=== PATIENT | female | born 1995 | race Caucasian/White ===

== ENCOUNTER 2016-07-15 14:40 | Inpatient (IN) | payer MEDICAID ==
[~2016-07-15] VITALS: Ht 162.6 cm; Wt 68.8 kg
[2016-07-15] MEDS ORDERED: AMPICILLIN 2 GM/NS (PMX) 100 ML IVPB ONE (15:00)
[2016-07-15 15:10] VITALS: Ht 162.6 cm; Wt 68.8 kg
[2016-07-15] MEDS ORDERED: PRENAT PO (15:12)
[2016-07-15] MEDS ORDERED: FERR325C PO (15:12)
[2016-07-15] MEDS: LACTATED RINGER'S 1,000 ML IV SCH ×3 (15:15→23:47)
[2016-07-15] MEDS ORDERED: BUTORPHANOL 2 MG INJ IV PRN (15:30)
[2016-07-15] MEDS ORDERED: LIDOCAINE 1% (MPF) 30 ML INJ INJ PRN (15:30)
[2016-07-15] MEDS ORDERED: IBUPROFEN 600 MG TAB PO PRN (15:30)
[2016-07-15] MEDS ORDERED: OXYTOCIN 30 UNITS/LR 500 ML IV SCH ×3 (15:30)
[2016-07-15] MEDS ORDERED: CARBOPROST 250 MCG INJ IM PRN (15:30)
[2016-07-15] MEDS ORDERED: LACTATED RINGER'S 1,000 ML IV PRN (15:30)
[2016-07-15] MEDS ORDERED: OXYTOCIN 30 UNITS/LR 500 ML IV PRN (15:30)
[2016-07-15] MEDS ORDERED: MISOPROSTOL 200 MCG TAB PR PRN (15:30)
[2016-07-15] MEDS ORDERED: METHYLERGONOVINE 0.2 MG INJ IM PRN (15:30)
[2016-07-15] MEDS ORDERED: AMPICILLIN 2 GM/NS (PMX) 100 ML ONE (15:41)
[2016-07-15 15:55] LABS: ADD SCAN DIFF NO
[2016-07-15 15:59] LABS: BASOPHILS % 0.2 % (0.0-2.0); EOSINOPHILS # 0.2 10^3/ul (0.0-0.5); EOSINOPHILS % 1.5 % (0.0-7.0); HEMATOCRIT 38.2 % (37.0-47.0); HEMOGLOBIN 12.9 g/dl (12.0-16.0); LYMPHOCYTES # 1.1 10^3/ul (0.8-2.9); LYMPHOCYTES % 10.9 % (18.0-55.0); MEAN CORPUSCULAR HEMOGLOBIN 30.7 pg (29.0-33.0); MEAN CORPUSCULAR HGB CONC 33.8 g/dl (32.0-37.0); MEAN PLATELET VOLUME 10.9 fl (7.4-10.4); MONOCYTE # 0.7 10^3/ul (0.3-0.9); MONOCYTES % 6.8 % (0.0-13.0); NEUTROPHIL # 7.9 10^3/ul (1.6-7.5); NEUTROPHILS % 79.5 % (30.0-74.0); PLATELET COUNT 254 10^3/UL (140-415); RED CELL DISTRIBUTION WIDTH 15.6 % (11.5-14.5); WHITE BLOOD COUNT 9.9 10^3/ul (4.8-10.8)
[2016-07-15 16:13] LABS: INR 0.93; PARTIAL THROMBOPLASTIN TIME 26.4 Sec (25.0-35.0); PROTIME 12.5 Sec (12.2-14.2)
--- NOTE | 2016-07-15 16:14 | TRIAGE ---
OB Triage Datetime Report Generated by CPN: 07/15/2016 16:14 Datetime: 07/15/2016 14:53 Vaginal Exam Dilatation (cms): 3.0 Effacement (%): 70 Station: -2 Exam By: OGBODU RN Datetime: 07/15/2016 14:46 Maternal Assessment Level of Consciousness: Fully Conscious DTR's/Clonus: DTRs 2+; No Clonus Headache: Denies Blurred Vision: No Respiratory Effort: Unlabored; Regular Rhythm; Equal Expansion Breath Sounds, Left: Clear and Equal Breath Sounds, Right: Clear and Equal Nausea/Vomiting: Denies RUQ Epigastric Pain: Denies Facial Edema: None Temperature Route: Axillary Fall Risk Assessment History of Falling: (0) No Secondary Diagnosis: (0) No Ambulatory Aid: (0) Bedrest/Nurse Assist IV Therapy: (0) No Gait: (0) Normal/Bedrest/Immobile Mental Status: (0) Oriented to Own Ability Fall Score: 0 Fall Risk Score Definition: No Risk: No action required Datetime: 07/15/2016 14:45 EGA: 39.3 Datetime: 07/15/2016 14:44 Time of Arrival: 07/15/2016 14:35 Arrived By: Ambulatory Arrived From: Home Chief Complaint: UC'S Movement: Present Contractions: Irregular Time Contractions Began: 07/15/2016 08:00 Contractions: IRREG Rupture of Membranes: Denies Vaginal Bleeding: None Vaginal Discharge: Denies Recent Sexual Intercouse: Denies Abdominal Trauma: Not Applicable Patient Complaints: Contractions; Back Pain Time Provider Notified: 07/15/2016 15:00 Provider Notified: DR. CARRASCO Initial Plan: SHREYAS REYEZ
[2016-07-15 19:07] VITALS: BP 116/82; PULSE 90; RESP 18
[2016-07-15] MEDS: AMPICILLIN 1 GM/NS (PMX) 50 ML IVPB SCH (20:27)
[2016-07-16] MEDS ORDERED: FENTAnyl 2MCG/ML-ROPIV 0.2% 100 ML ONE (00:17)
[2016-07-16] MEDS: AMPICILLIN 1 GM/NS (PMX) 50 ML IVPB SCH ×4 (00:23→12:10)
[2016-07-16] MEDS ORDERED: NALOXONE (0.4 MG/ML) INJ IV PRN (00:30)
[2016-07-16] MEDS ORDERED: FENTAnyl 2MCG/ML-ROPIV 0.2% 100 ML BAG EPI SCH (00:30)
[2016-07-16] MEDS: LACTATED RINGER'S 1,000 ML IV SCH (07:03)
--- NOTE | 2016-07-16 15:23 | LDN ---
Date/Time of Note Date/Time of Note DATE: 07/16/16 TIME: 15:18 Delivery Summary Normal spontaneous vaginal delivery of a baby girl from [place] position shoulders delivered without any difficulties rest of the baby's body follow placenta spontaneous expulsion inspected complete patient sustained small first-degree perineal laceration repaired with 3-0 chromic catgut estimated blood loss 200 mL Weeks of Gestation 39 weeks 3 days Placenta Delivered: Spontaneously Meconium: none Episiotomy: No Laceration repair: First-degree perineal laceration repaired with 3-0 chromic catgut Anesthesia type: Epidural Sponge & Needle done & correct: Yes All needle counts correct: Yes Any foreign bodies felt in the: No Problems: Infant Delivery Information Sex Sex: female Apgars 1 Minute: 8 5 Minute: 9 Suctioning Nose & mouth suctioned at sm[place]: Yes Umbilical Cord Umbilical cord with: 3 Vessels Cord presentations: nuchal cord Nuchal cord present X: 2 Cord Blood was obtained: Yes ALCIDES CARRASCO MD July 16, 2016 15:23
--- NOTE | 2016-07-16 15:31 | HP ---
Date/Time of Note Date/Time of Note DATE: 07/16/16 TIME: 15:28 OB - History Hx of Present Free Text/Dictation 20 years old female 1 para 0 EDC July 19, 2016 at 39 weeks and 3 days admitted in labor admitting exam consists of cervical dilatation of 3 cm 70% effacement vertex AT -2 station contraction 5-7 minutes of she required labor augmentation uneventful course except positive cultures for GBS Chief Complaint: Labor contraction Estimated Due Date: July 19, 2016 : 1 Para: 0 Care: Good Care Ultrasounds: Normal mid trimester US Medical Complications: None Past Family/Social History * Past Medical, Surgical, Family and Obstetric Histories reviewed from chart. Rubella: immune RPR/VDRL: Negative GBS Status: Negative HBsAG: Negative OB Admission Exam Vital Signs Vital Signs Vital Signs Date Time Temp Pulse Resp B/P Pulse Ox O2 Delivery O2 Flow Rate FiO2 07/15/16 19:07 98.2 90 18 116/82 97 Room Air Physical Exam HEENT: WNL Heart: Rhythm Normal Lungs: Clear, Equal Abdomen: WNL Extremities: Normal Reflexes: Normal Cervical Dilatation: 3cm Effacement: 75% Station: -2 Membranes: Intact Heart Rate: 120's Accelerations: Accelerations Present Decelerations: No Decelerations Varibility: Moderate Contractions on Admission: >10 Minutes Apart Intensity: Mild Last 72 hours Lab Results CBC & BMP 07/15/16 15:30 ALCIDES CARRASCO MD July 16, 2016 15:31
[2016-07-16 16:10] VITALS: BP 112/71; PULSE 97; RESP 18
[2016-07-16] MEDS ORDERED: LANOLIN 7 GM TUBE TOP PRN (18:00)
[2016-07-16] MEDS ORDERED: ONDANSETRON 4 MG INJ IV PRN (18:00)
[2016-07-16] MEDS ORDERED: OXYCODONE/ASPIRIN (4.88/325) TAB PO PRN (18:00)
[2016-07-16] MEDS ORDERED: DIBUCAINE 1% 30 GM OINT PR PRN (18:00)
[2016-07-16] MEDS ORDERED: ACETAMINOPHEN 325 MG TAB PO PRN (18:00)
[2016-07-16] MEDS ORDERED: ACETAMINOPHEN/CODEINE #3 TAB PO PRN ×2 (18:00)
[2016-07-16] MEDS: BENZOCAINE 20% 56 ML SPRAY TOP PRN (18:16)
[2016-07-16] MEDS: WITCH HAZEL/GLYCERIN PAD PR PRN (18:16)
[2016-07-16] MEDS: OXYTOCIN 30 UNITS/LR 500 ML IV SCH ×2 (18:18→22:11)
[2016-07-16] MEDS: IBUPROFEN 600 MG TAB PO SCH ×2 (18:19→23:58)
[2016-07-16 19:50] VITALS: BP 111/69; PULSE 84; RESP 18
[2016-07-16] MEDS: SENNA/DOCUSATE NA (8.6MG/50MG) TAB PO SCH (21:30)
[2016-07-17] VITALS: BP 103/64; PULSE 72; RESP 18
[2016-07-17 04:05] VITALS: BP 109/82; PULSE 84; RESP 18
[2016-07-17] MEDS: IBUPROFEN 600 MG TAB PO SCH ×4 (05:58→23:54)
[2016-07-17 07:59] LABS: ADD SCAN DIFF NO
[2016-07-17 08:00] LABS: BASOPHILS % 0.4 % (0.0-2.0); EOSINOPHILS # 0.3 10^3/ul (0.0-0.5); EOSINOPHILS % 3.1 % (0.0-7.0); HEMATOCRIT 36.3 % (37.0-47.0); HEMOGLOBIN 11.9 g/dl (12.0-16.0); LYMPHOCYTES # 1.3 10^3/ul (0.8-2.9); LYMPHOCYTES % 13.1 % (18.0-55.0); MEAN CORPUSCULAR HEMOGLOBIN 30.2 pg (29.0-33.0); MEAN CORPUSCULAR HGB CONC 32.8 g/dl (32.0-37.0); MEAN CORPUSCULAR VOLUME 92.1 fl (72.0-104.0); MONOCYTE # 0.8 10^3/ul (0.3-0.9); MONOCYTES % 8.5 % (0.0-13.0); NEUTROPHIL # 7.2 10^3/ul (1.6-7.5); NEUTROPHILS % 74.1 % (30.0-74.0); PLATELET COUNT 215 10^3/UL (140-415); RED BLOOD COUNT 3.94 10^6/ul (4.20-5.40); RED CELL DISTRIBUTION WIDTH 15.9 % (11.5-14.5); WHITE BLOOD COUNT 9.7 10^3/ul (4.8-10.8)
[2016-07-17 08:30] VITALS: BP 100/68; PULSE 80; RESP 18
[2016-07-17] MEDS: SENNA/DOCUSATE NA (8.6MG/50MG) TAB PO SCH ×2 (09:15→20:28)
[2016-07-17 12:01] LABS: RUBELLA ANTIBODY - IGG <0.90 index
--- NOTE | 2016-07-17 13:10 | PN ---
Date/Time of Note Date/Time of Note DATE: 07/17/16 TIME: 13:09 OB Subjective Subjective Subjective day 1 Afebrile abdomen soft uterus firm lochia normal extremity normal ambulation encouraged Laboratory Tests Test 07/17/16 07:10 White Blood Count 9.710^3/ul Red Blood Count 3.9410^6/ul Hemoglobin 11.9g/dl Hematocrit 36.3% Mean Corpuscular Volume 92.1fl Mean Corpuscular Hemoglobin 30.2pg Mean Corpuscular Hemoglobin Concent 32.8g/dl Red Cell Distribution Width 15.9% Platelet Count 15693^3/UL Mean Platelet Volume 11.0fl Neutrophils % 74.1% Lymphocytes % 13.1% Monocytes % 8.5% Eosinophils % 3.1% Basophils % 0.4% Nucleated Red Blood Cells % 0.0/100WBC Neutrophils # 7.210^3/ul Lymphocytes # 1.310^3/ul Monocytes # 0.810^3/ul Eosinophils # 0.310^3/ul Basophils # 0.010^3/ul Nucleated Red Blood Cells # 0.010^3/ul Current Medications Medications (Trade) Dose Ordered Sig/Britton Route PRN Reason Start Time Stop Time Status Last Admin Dose Admin Lactated Ringer's 1,000 ml @ 125 mls/hr Q8H IV 07/15/16 15:05 07/16/16 17:59 DC 07/16/16 07:03 Oxytocin/Lactated Ringer's 500 ml @ 0 mls/hr TITRATE IV 07/15/16 15:30 07/16/16 17:59 DC 07/15/16 16:00 Butorphanol Tartrate (Stadol) 2 mg Q2H PRN IV PAIN 07/15/16 15:30 07/16/16 17:59 DC Lidocaine 30 ml 30 ml ONCE PRN INJ EPISIOTOMY/TEARING 07/15/16 15:30 07/16/16 17:59 DC Oxytocin/Lactated Ringer's 500 ml @ 125 mls/hr ONCE -MAY REPEAT X1 IV 07/15/16 15:30 07/16/16 17:59 DC 07/16/16 13:05 Oxytocin/Lactated Ringer's 500 ml @ 125 mls/hr ONCE IV 07/15/16 15:30 07/16/16 17:59 DC Ibuprofen 600 mg 600 mg ONCE PRN PO Mild Pain (Pain Score 1-3) 07/15/16 15:30 07/16/16 18:00 DC 07/16/16 14:20 Lactated Ringer's 1,000 ml @ 2,000 mls/hr Q30M PRN IV PRE-EPIDURAL BOLUS 07/15/16 15:30 07/16/16 18:00 DC Oxytocin/Lactated Ringer's 500 ml @ 0 mls/hr ONCE PRN IV For Hemorrhage Management 07/15/16 15:30 07/16/16 18:00 DC Methylergonovine Maleate (Methergine) 0.2 mg ONCE PRN IM VAGINAL BLEEDING 07/15/16 15:30 07/16/16 18:00 DC Carboprost Tromethamine (Hemabate) 250 mcg ONCE PRN IM VAGINAL BLEEDING 07/15/16 15:30 07/16/16 18:00 DC Misoprostol 1000 mcg 1,000 mcg ONCE PRN MS VAGINAL BLEEDING 07/15/16 15:30 07/16/16 18:00 DC Ampicillin 100 ml @ STK-MED ONCE .ROUTE 07/15/16 15:41 07/15/16 15:42 DC Ampicillin 100 ml @ 100 mls/hr ONCE ONCE IVPB 07/15/16 15:00 07/15/16 16:41 DC 07/15/16 16:00 Ampicillin (Ampicillin 1 Gm/ NS (Pmx)) 50 ml @ 100 mls/hr Q4 IVPB 07/15/16 17:00 07/16/16 18:00 DC 07/16/16 12:10 Naloxone HCl (Narcan) 0.2 mg Q2M PRN IV FOR RESP RATE 8 OR LESS 07/16/16 00:30 07/16/16 18:00 DC Fentanyl/ Ropivacaine 100 ml 100 ml EPIDURAL (PCEA) EPI 07/16/16 00:30 07/16/16 18:00 DC 07/16/16 07:41 Fentanyl/ Ropivacaine 100 ml @ STK-MED ONCE .ROUTE 07/16/16 00:17 07/16/16 00:18 DC Oxytocin/Lactated Ringer's 500 ml @ 125 mls/hr Q4H IV 07/16/16 17:58 07/17/16 01:57 DC 07/16/16 22:11 Ibuprofen (Motrin) 600 mg Q6 PO 07/16/16 18:00 07/17/16 12:53 Acetaminophen (Tylenol Tab) 650 mg Q4H PRN PO PAIN LEVEL 1-5 07/16/16 18:00 Acetaminophen/ Codeine Phosphate (Tylenol No.3) 1 tab Q4H PRN PO PAIN LEVEL 1-5 07/16/16 18:00 07/17/16 09:16 Acetaminophen/ Codeine Phosphate (Tylenol No.3) 2 tab Q4H PRN PO PAIN LEVEL 6-10 07/16/16 18:00 07/16/16 21:35 Oxycodone/Aspirin (Percodan) 1 tab Q3H PRN PO PAIN LEVEL 1-5 07/16/16 18:00 Oxycodone/Aspirin (Percodan) 2 tab Q3H PRN PO PAIN LEVEL 6-10 07/16/16 18:00 Ondansetron HCl (Zofran Inj) 4 mg Q6H PRN IV NAUSEA AND/OR VOMITING 07/16/16 18:00 Senna/Docusate Sodium (Senokot-S) 1 tab BID PO 07/16/16 21:00 07/17/16 09:15 Witch Judi/ Glycerin (Tucks Pads) 1 pad BEDSIDE MEDICATION PRN MS HEMORRHOID/EPISIOTMY PAIN 07/16/16 18:00 07/16/16 18:16 Benzocaine (Dermoplast Browder) 1 spray BEDSIDE MEDICATION PRN TOP HEMORRHOID/EPISIOTMY PAIN 07/16/16 18:00 07/16/16 18:16 Dibucaine (Nupercainal) 1 applic BEDSIDE MEDICATION PRN MS HEMORRHOID/EPISIOTMY PAIN 07/16/16 18:00 07/16/16 18:17 Lanolin (Tud-Q-Catbaa) 1 applic BEDSIDE MEDICATION PRN TOP BEDSIDE FOR DAYAN TO NIPPLES 07/16/16 18:00 07/16/16 18:17 Measles/Mumps/ Rubella Vaccine Live (Mmr Ii Vaccine) 0.5 ml ONCE ONCE SC* 07/18/16 09:00 07/18/16 09:01 ALCIDES CARRASCO MD July 17, 2016 13:10
[2016-07-17 16:20] VITALS: BP 99/57; PULSE 82; RESP 18
[2016-07-17] MEDS: OXYCODONE/ASPIRIN (4.88/325) TAB PO PRN ×2 (16:32→20:28)
[2016-07-17 20:28] VITALS: BP 103/56; PULSE 84; RESP 18
[2016-07-18 04:05] VITALS: BP 83/52; PULSE 68; RESP 18
[2016-07-18] MEDS: IBUPROFEN 600 MG TAB PO SCH ×2 (05:36→11:58)
[2016-07-18 08:00] VITALS: BP 97/60; PULSE 67; RESP 18
[2016-07-18] MEDS ORDERED: MEASLES,MUMPS,RUBELLA VACCINE INJ SC* ONE (09:00)
[2016-07-18] MEDS: SENNA/DOCUSATE NA (8.6MG/50MG) TAB PO SCH (09:16)
[2016-07-18] MEDS: BENZOCAINE 20% 56 ML SPRAY TOP PRN (09:17)
[2016-07-18] MEDS: WITCH HAZEL/GLYCERIN PAD PR PRN (09:17)
--- NOTE | 2016-07-18 11:12 | PD.PPDC ---
CONVEYOR LOADER Discharge Instruction Condition Patient Condition: Good Activity/Restrictions Restrictions: No Exercising No Lifting No Driving No Sexual Activity Nothing in the Vagina No Brock No Tampons, douche Follow-up Follow-up with Physician: Week/Weeks Provider Information: Appointment clinic in 2 weeks Return to clinic for HOCKEY SCOUT Instructions: Fever greater than 101 Worsening abdominal pain Excessive Vaginal Bleeding More than 2 pads per hour Unable to tolerate diet OB Instructions: Breast Tenderness Depression Blurried Vision Headache ALCIDES CARRASCO MD July 18, 2016 11:12
--- NOTE | 2016-07-18 11:14 | DS ---
Date/Time of Note Date/Time of Note DATE: 07/18/16 TIME: 11:12 Discharge Summary Admission/Discharge Info Admit Date/Time July 15, 2016 at 15:04 Discharge Date/Time July 18, 2016 at 1115 Final Diagnosis Post normal vaginal delivery Patient Condition: Good Procedures Normal vaginal delivery Hx of Present Illness Term Hospital Course Uneventful satisfactory Home Meds Reported Medications Ferrous Sulfate (Iron) 325 Mg Capsule.er, 325 MG PO, CAP 07/15/16 Multivit/Min/Fol Ac/Iron/Pren* ( S*) 1 Tab Tab, 1 TAB PO DAILY, TAB 07/15/16 Follow-up Plan recommendations given advised to make appointment in 2 weeks the clinic ALCIDES CARRASCO MD July 18, 2016 11:14
== END 2016-07-18 16:06 | disposition home or self-care (01) | DRG 775 ==
LOC: OBT 14:40 → L-D 14:42 → OBT 15:02 → L-D 15:04 → PP1 07-16 16:11
PROVIDERS: ADMIT Obstetrics & Gynecology; ATTEND Obstetrics & Gynecology
PROC: 10E0XZZ Delivery of Products of Conception, External Approach (ICD-10-PCS; principal; 2016-07-16)
PROC: 0HQ9XZZ Repair Perineum Skin, External Approach (ICD-10-PCS; 2016-07-16)
DX: O70.0 First degree perineal laceration during delivery (principal); O69.81X0 Labor and delivery complicated by cord around neck, without compression, not applicable or unspecified; Z3A.39 39 weeks gestation of pregnancy; Z37.0 Single live birth
CPT/HCPCS: 62319; 85025; 85610; 85730; 86592; 86703; 86762; 86850; 86885; 86900; 86901; 87340; G0463; J0290; J2590; J2790; J3010; J7120

== ENCOUNTER 2017-02-12 22:26 | Outpatient (CLI) | payer MEDICAID ==
[~2017-02-12] VITALS: Ht 160 cm; Wt 64.2 kg
[~2017-02-12 22:26] MED LIST: FERR325C PO; PRENAT PO
[2017-02-12 23:27] VITALS: Ht 160 cm; Wt 64.2 kg
[2017-02-12 23:29] VITALS: BP 109/64; PULSE 67; RESP 18
--- NOTE | 2017-02-12 23:56 | PN ---
Triage Information Date/Time Reason for visit: Patient is a 21-year-old 2 para 1 who presents with an episode of dizziness and syncope Weeks of Gestation 21-year-old 2 para 1 at 21 weeks and 3 days of gestation with estimated date of delivery June 22, 2017 Patient presents with an episode of dizziness and syncope/blackout She states that she had a similar episode with her prior and once more when she was not Patient indicates positive movements, no leaking fluid, no vaginal bleeding and no contractions /Para 2 para 1 Diabetes: none Hypertention: none Objective Vital Signs Date Time Temp Pulse Resp B/P Pulse Ox O2 Delivery O2 Flow Rate FiO2 02/12/17 23:29 98.6 67 18 109/64 Room Air Heart Rate: 140's Contractions: None Results/Medications Imaging Results PROCEDURE: US OB. CLINICAL INDICATION: labor. TECHNIQUE: Multiple sonographic images of the pelvis were obtained. Transabdominal imaging only was performed. The images were reviewed on a PACS workstation. COMPARISON: No prior studies are available for comparison. FINDINGS: There is a single viable intrauterine gestation. Cardiac activity is present with 132 beats per minute. There is a cephalic presentation. Measurements were made in order to determine age. The results are as follows: BPD = 5.33 cm HC = 18.95 cm AC = 15.96 cm FL = 3.51 cm Estimated gestational age of approximately 21 weeks 3 days. The estimated date of delivery is 06/23/2017. The EFW = 402 g. EFW percentile: 24% The placenta is anterior, grade 0. There is no evidence for an abruption or placenta previa. There is an adequate amount of amniotic fluid. The MVP measures 7.7 cm. IMPRESSION: 1. Single viable intrauterine gestation of approximately 21 weeks 3 days, based on ultrasound measurements. The estimated date of delivery is 06/23/2017. 2. EFW percentile: 24%. RPTAT: HTAR .Shane Hernandes MD, Date Time Electronically viewed and signed by .Shane Hernandes MD, on 02/13/2017 00:41 .R/ CC: LES GLASS MD Disposition: Discharge Assessment/Plan CBC,CMP, UA all within normal limits OB ultrasound including gestational age and estimated weight EKG-normal sinus rhythm P.o. hydration Patient discharged home Patient was instructed to increase fluid intake Patient was instructed to follow-up with her own CONTESTANT COORDINATOR in 2 days LES GLASS MD Feb 12, 2017 23:56
--- NOTE | 2017-02-13 00:41 | RADRPT ---
PROCEDURE: US OB. CLINICAL INDICATION: labor. TECHNIQUE: Multiple sonographic images of the pelvis were obtained. Transabdominal imaging only w as performed. The images were reviewed on a PACS workstation. COMPARISON: No prior studies are available for comparison. FINDINGS: There is a single viable intrauterine gestation. Cardiac activity is present with 132 beats per minute. There is a cephalic presentation. Measurements were made in order to determine age. The results are as follows: BPD = 5.33 cm HC = 18.95 cm AC = 15.96 cm FL = 3.51 cm Estimated gestational age of approximately 21 weeks 3 days. The estimated date of delivery is 06/23/2017. The EFW = 402 g. EFW percentile: 24% The placenta is anterior, grade 0. There is no evidence for an abruption or placenta previa. There is an adequate amount of amniotic fluid. The MVP measures 7.7 cm. IMPRESSION: 1. Single viable intrauterine gestation of approximately 21 weeks 3 days, based on ultrasound measu rements. The estimated date of delivery is 06/23/2017. 2. EFW percentile: 24%. RPTAT: HTAR .Shane Hernandes MD, Date Time Electronically viewed and signed by .Shane Hernandes MD, on 02/13/2017 00:41 .R/
[2017-02-13 01:20] LABS: BASOPHILS % 0.3 % (0.0-2.0); EOSINOPHILS # 0.5 10^3/ul (0.0-0.5); EOSINOPHILS % 4.9 % (0.0-7.0); HEMATOCRIT 31.7 % (37.0-47.0); HEMOGLOBIN 10.9 g/dl (12.0-16.0); LYMPHOCYTES # 1.9 10^3/ul (0.8-2.9); LYMPHOCYTES % 19.1 % (18.0-55.0); MEAN CORPUSCULAR HEMOGLOBIN 30.2 pg (29.0-33.0); MEAN CORPUSCULAR HGB CONC 34.4 g/dl (32.0-37.0); MEAN CORPUSCULAR VOLUME 87.8 fl (72.0-104.0); MEAN PLATELET VOLUME 10.9 fl (7.4-10.4); MONOCYTE # 0.6 10^3/ul (0.3-0.9); MONOCYTES % 6.2 % (0.0-13.0); NEUTROPHIL # 6.8 10^3/ul (1.6-7.5); NEUTROPHILS % 68.8 % (30.0-74.0); PLATELET COUNT 250 10^3/UL (140-415); RED BLOOD COUNT 3.61 10^6/ul (4.20-5.40); RED CELL DISTRIBUTION WIDTH 14.3 % (11.5-14.5); WHITE BLOOD COUNT 9.9 10^3/ul (4.8-10.8)
[2017-02-13 01:22] LABS: ADD UMIC YES; UR ASCORBIC ACID NEGATIVE (NEGATIVE); UR BILIRUBIN (Dip) NEGATIVE (NEGATIVE); UR BLOOD (Dip) 1+ mg/dL (NEGATIVE); UR CLARITY CLEAR (CLEAR); UR COLOR COLORLESS (YELLOW); UR GLUCOSE (Dip) NEGATIVE (NEGATIVE); UR KETONES (Dip) NEGATIVE (NEGATIVE); UR LEUKOCYTE ESTERASE (Dip) NEGATIVE Leu/ul (NEGATIVE); UR NITRITE (Dip) NEGATIVE (NEGATIVE); UR RBC 1 /HPF (0-5); UR SPECIFIC GRAVITY (Dip) 1.005 (1.003-1.030); UR TOTAL PROTEIN (Dip) NEGATIVE (NEGATIVE); UR UROBILINOGEN (Dip) NEGATIVE (NEGATIVE)
[2017-02-13 01:36] LABS: ALBUMIN 3.4 g/dl (3.3-4.9); BILIRUBIN,INDIRECT 0.2 mg/dl (0-1.1); BILIRUBIN,TOTAL 0.2 mg/dl (0.2-1.3); CALCIUM 9.4 mg/dl (8.4-10.2); CREATININE 0.47 mg/dl (0.44-1.00); POTASSIUM 3.9 mmol/L (3.5-5.1); TOTAL PROTEIN 6.8 g/dl (6.1-8.1)
--- NOTE | 2017-02-15 14:26 | RADRPT ---
Vent Rate: 73 bpm RR Interval: 0 msec OK Interval: 142 msec QRS Duration: 74 msec QT Interval: 408 msec QTC Interval: 449 msec P-R-T [place]: 48 - 51 - 42 degrees Normal sinus rhythm with sinus arrhythmia Nonspecific ST abnormality Abnormal ECG Electronically Signed By: Matthew Gleason [id number]
== END 2017-02-13 02:16 | disposition home or self-care (01) ==
LOC: OBT 22:26 → L-D 22:27 → OBT 02-13 02:16
PROVIDERS: ATTEND Obstetrics & Gynecology
DX: O26.892 Other specified pregnancy related conditions, second trimester (principal); R55 Syncope and collapse; R42 Dizziness and giddiness; Z3A.21 21 weeks gestation of pregnancy
CPT/HCPCS: 76815; 80053; 81001; 85025; 93005; Z7500; G0463

== ENCOUNTER 2017-06-03 14:07 | Outpatient (CLI) | END 2017-06-03 16:55 | disposition home or self-care (01) ==

== ENCOUNTER 2017-06-24 08:48 | Inpatient (IN) | END 2017-06-26 15:10 | disposition home or self-care (01) | DRG 774 ==

== ENCOUNTER 2017-12-24 10:34 | Emergency (ER) | END 2017-12-24 13:10 | disposition home or self-care (01) ==

== ENCOUNTER 2018-03-11 19:43 | Emergency (ER) | payer SELFPAY ==
[~2018-03-11] VITALS: Ht 165.1 cm; Wt 72.6 kg
[~2018-03-11 19:43] MED LIST changes: +LORA-441 PO
[2018-03-11 20:03] VITALS: BP 135/86; PULSE 96; RESP 18; Ht 165.1 cm; Wt 72.6 kg
--- NOTE | 2018-03-11 22:13 | ERD ---
ER Documentation Chief Complaint Chief Complaint L sided CWP on/off x 2 days w/ringing in her ears sometimes HPI 22-year-old female presents with a complaint of sharp pain occurring in the left anterior portion of her chest 3 times a day for the past couple of days. States on the pain occurs she feels dizzy and feels some slight numbness in her left arm. Denies any syncope, cough, headache, focal neurological findings, recent i llness. Denies past medical history. Denies allergies. Denies surgeries. Denies social. ROS All systems reviewed and are negative except as per history of present illness. Medications Home Meds Active Scripts Ibuprofen* (Motrin*) 400 Mg Tab, 400 MG PO Q6 for PAIN, #30 TAB 0 Refills Prov:NICHOLE JOHNSON 03/12/18 Lorazepam* (Ativan*) 0.5 Mg Tablet, 0.5 MG PO BID PRN for ANXIETY, #10 TAB Prov:YOLANDA JAVED MD 12/24/17 Reported Medications Ferrous Sulfate (Iron) 325 Mg Capsule.er, 325 MG PO, CAP 07/15/16 Multivit/Min/Fol Ac/Iron/Pren* ( S*) 1 Tab Tab, 1 TAB PO DAILY, TAB 07/15/16 Allergies Allergies: Coded Allergies: No Known Allergy (Unverified , 03/09/14) PMhx/Soc Hx Neurological Disorder: No Hx Respiratory Disorders: No Hx Cardiac Disorders: No Hx Psychiatric Problems: No Hx Miscellaneous Medical Probl: Yes (anemia) Hx Alcohol Use: No Hx Substance Use: No Hx Tobacco Use: No FmHx Family History: No diabetes, No coronary disease, No other Physical Exam Vitals Vital Signs Date Temp Pulse Resp B/P (MAP) Pulse Ox O2 O2 Flow FiO2 Time Delivery Rate 03/11/18 97.5 96 18 135/86 97 20:03 (102) Physical Exam General: Well developed, well nourished. No acute distress. Neck: No lymphadenopathy noted. Tracheal midline, no goiter or nodules noted. No JVD. Heart: RR w/o murmur, rubs, or gallops. Tenderness to palpation at approximately third left intercostal space. No lesions, masses, bony deformity noted. Lungs: Clear to auscultation bilaterally w/o wheezes, crackles, rhonchi. Symmetric rise and fall. Equal breath sounds. Psych: Normal mood and affect. Result Diagram: 03/11/18222903/11/182229 Results 24 hrs Laboratory Tests Test 03/11/18 22:15 03/11/18 22:30 POC Beta HCG, Qualitative NEGATIVE White Blood Count 10.5 10^3/ul Red Blood Count 5.03 10^6/ul Hemoglobin 14.0 g/dl Hematocrit 42.5 % Mean Corpuscular Volume 84.5 fl Mean Corpuscular Hemoglobin 27.8 pg Mean Corpuscular Hemoglobin Concent 32.9 g/dl Red Cell Distribution Width 13.2 % Platelet Count 367 10^3/UL Mean Platelet Volume 11.0 fl Immature Granulocytes % 0.300 % Neutrophils % 65.4 % Lymphocytes % 27.1 % Monocytes % 4.4 % Eosinophils % 2.3 % Basophils % 0.5 % Nucleated Red Blood Cells % 0.0 /100WBC Immature Granulocytes # 0.030 10^3/ul Neutrophils # 6.9 10^3/ul Lymphocytes # 2.8 10^3/ul Monocytes # 0.5 10^3/ul Eosinophils # 0.2 10^3/ul Basophils # 0.1 10^3/ul Nucleated Red Blood Cells # 0.0 10^3/ul Sodium Level 141 mmol/L Potassium Level 4.7 mmol/L Chloride Level 102 mmol/L Carbon Dioxide Level 24 mmol/L Anion Gap 15 Blood Urea Nitrogen 13 mg/dl Creatinine 0.57 mg/dl Est Glomerular Filtrat Rate mL/min > 60 mL/min Glucose Level 131 mg/dl Calcium Level 9.8 mg/dl Total Bilirubin 0.3 mg/dl Direct Bilirubin 0.00 mg/dl Indirect Bilirubin 0.3 mg/dl Aspartate Amino Transf (AST/SGOT) 20 IU/L Alanine Aminotransferase (ALT/SGPT) 15 IU/L Alkaline Phosphatase 98 IU/L Troponin I < 0.012 ng/ml Total Protein 8.6 g/dl Albumin 4.6 g/dl Globulin 4.00 g/dl Albumin/Globulin Ratio 1.15 Procedures/MDM DIAGNOSTIC IMAGING REPORT Patient: MEHRDAD BOWEN : 1995 Age: 22 Sex: F MR #: [id number] DOS: 01/05/19 2202 Ordering MD: NICHOLE JOHNSON Location: [facility] Room/Bed: PROCEDURE: XR Chest. CLINICAL INDICATION: Chest wall pain. TECHNIQUE: Single frontal view of the chest. COMPARISON: None. FINDINGS: The cardiomediastinal silhouette is within normal limits. The patient body habitus accentuates pulmonary vascular markings at the lung bases. The lungs are clear. No signs of pleural fluid or pneumothorax are seen. The osseous structures and soft tissues are unremarkable. IMPRESSION: No evidence for active cardiopulmonary disease. RPTAT: UU Physician Jorge Date Time Electronically viewed and signed by Physician Jorge on 03/11/2018 23:53 RS/ CC: NICHOLE JOHNSON [phone] ER course: EKG: Rate/Rhythm: Normal Sinus Rhythm QRS, ST, T-waves: No changes consistent w/ acute ischemia Impression: No evidence of ischemia or arrhythmia ER Course: EKG, CXR, Troponin, CBC, CMP - All WNL MDM: 22-year-old female presents with a complaint of sharp pain occurring in the left anterior portion of her chest 3 times a day for the past couple of days. States on the pain occurs she feels dizzy and feels some slight numbness in her left arm. Chest pain was reproducible on exam as there was tenderness to palpation at approximately third left intercostal space. I have low suspicion for pulmonary embolism as patient had very low Wells score and did not meet criteria to d-dimer or CT. Low suspicion for LA due to normal EKG patient his tory as well as normal troponin. Low suspicion for aortic dissection patient history and exam. Low suspicion for pneumonia based on patient history and exam. Likely costochondritis due to its reproducible nature on exam. Patient discharged with Rx for ibuprofen. Patient discharged with strict ER precautions. Patient advised to follow up with PMD. All questions answered at discharge. Departure Diagnosis: Primary Impression: Chest wall pain Condition: Stable NICHOLE JOHNSON Mar 11, 2018 22:13
[2018-03-12] MEDS ORDERED: IBUP-1561 PO (00:05)
== END 2018-03-12 01:31 | disposition left against medical advice (07) ==
LOC: FTE 19:43
DX: R07.89 Other chest pain (principal)
CPT/HCPCS: 36415; 71045; 80053; 81025; 84484; 85025; 93005